=== PATIENT | female | born 1980 | race Caucasian/White ===

== ENCOUNTER 2017-02-06 14:57 | Emergency (ER) | payer OTHER ==
[2017-02-06 15:03] VITALS: BP 118/78; PULSE 71; TEMP 98.1; BMI 27.3
[2017-02-06] MEDS ORDERED: IBUPROFEN 600 MG TABLET (FP) PO ONE ×2 (16:16→16:17)
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
== END 2017-02-06 16:19 | disposition home or self-care (01) ==
LOC: JERFT 14:57
DX: S56.811A Strain of other muscles, fascia and tendons at forearm level, right arm, initial encounter (principal); Y35.811A Legal intervention involving manhandling, law enforcement official injured, initial encounter; Y93.89 Activity, other specified; Y92.89 Other specified places as the place of occurrence of the external cause; Y99.0 Civilian activity done for income or pay
CPT/HCPCS: 99281-25

== ENCOUNTER 2017-07-04 15:14 | Emergency (ER) | payer OTHER ==
[2017-07-04 15:39] VITALS: BP 117/62; PULSE 83; TEMP 98.2; BMI 27.1
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
[2017-07-04] MEDS ORDERED: DIPHTH,PERTUSS(ACELL),TET 0.5 ML DISP.SYRIN IM ONE (16:40)
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
== END 2017-07-04 16:51 | disposition home or self-care (01) ==
LOC: JERFT 15:14
PROC: 3E0234Z Introduction of Serum, Toxoid and Vaccine into Muscle, Percutaneous Approach (ICD-10-PCS; principal; 2017-07-04)
DX: Z77.21 Contact with and (suspected) exposure to potentially hazardous body fluids (principal); Y35.891A Legal intervention involving other specified means, law enforcement official injured, initial encounter; Y93.89 Activity, other specified; Y92.89 Other specified places as the place of occurrence of the external cause; Y99.0 Civilian activity done for income or pay
CPT/HCPCS: 90715; 99281-25

== ENCOUNTER 2018-11-07 08:58 | Emergency (ER) | payer OTHER ==
[2018-11-07 09:04] VITALS: BP 137/82; PULSE 60; TEMP 97.9; BMI 28.3
[2018-11-07] MEDS ORDERED: IBUPROFEN 600 MG TABLET (FP) PO ONE ×2 (09:46→09:57)
--- NOTE | 2018-11-07 09:48 | PDOC ---
History of Present Illness - General Chief Complaint: Pain Stated Complaint: RT. HAND PAIN Time Seen by Provider: 11/07/18 09:37 History Source: Patient Exam Limitations: No Limitations - History of Present Illness Initial Comments: 11/07/18 09:43 37 year old [employer] with no significant medical or surgical history presents with injury to right hand. Patient reports bracing on her right hand to get up and since then with pain in right 3rd digit. Denies numbness or tingling in distal finger. Occurred: reports: just prior to arrival Severity: reports: mild Upper Extremity Pain Location: right: 3rd finger Method of Injury: reports: other (braced on hand while standing up) Modifying Factors: improves with: None (no intervention so far) Extremity Pain Location - Extremity Pain Location Extremity Pain Locations: right: 3rd finger Past History - Travel Traveled outside of the country in the last 30 days: No Close contact w/someone who was outside of country & ill: No - Past Medical History Allergies/Adverse Reactions: Allergies Allergy/AdvReac Type Severity Reaction Status Date / Time No Known Allergies Allergy Verified 11/07/18 09:04 Home Medications: Ambulatory Orders NK [No Known Home Medication] 03/05/15 COPD: No - Immunization History Immunization Up to Date: Yes - Suicide/Smoking/Psychosocial Hx Smoking Status: No Smoking History: Never smoked Have you smoked in the past 12 months: Yes Number of Cigarettes Smoked Daily: 1 Information on smoking cessation initiated: No Hx Alcohol Use: No Drug/Substance Use Hx: No Substance Use Type: None Review of Systems - Review of Systems Able to Perform ROS?: Yes Is the patient limited [place]anian proficient: No Constitutional: No: Chills, Fever, Weakness HEENTM: No: Nose Congestion, Throat Swelling Respiratory: No: Shortness of Breath, Stridor Cardiac (ROS): No: Chest Pain, Lightheadedness ABD/GI: No: Nausea, Indigestion : No: Pain Musculoskeletal: No: Muscle Pain, Muscle Weakness Integumentary: No: Erythema Neurological: No: Numbness, Paresthesia, Weakness *Physical Exam - Vital Signs Last Vital Signs Temp Pulse Resp BP Pulse Ox 97.9 F 60 18 137/82 99 11/07/18 09:02 11/07/18 09:02 11/07/18 09:02 11/07/18 09:02 11/07/18 09:02 - Physical Exam General Appearance: Yes: Nourished, Appropriately Dressed HEENT: positive: TMs Normal, Pharynx Normal Neck: positive: Supple. negative: Lymphadenopathy (R), Lymphadenopathy (L) Respiratory/Chest: positive: Lungs Clear, Normal Breath Sounds Cardiovascular: positive: Regular Rhythm, Regular Rate Extremity: positive: Normal Capillary Refill, Other (small amount of swelling noted on palmar aspect of right hand, no bruising, able to do ROM of hand and fingers of both hands without pain or difficulty. No crepitus felt or heard) Neurologic: positive: Fully Oriented Medical Decision Making - Medical Decision Making 11/07/18 09:49 37 year old [employer] with no significant medical or surgical history presents with injury to right hand 3rd right digit injury -analgesia/anti-inflammatory given PO -xray of right hand and right fingers *DC/Admit/Observation/Transfer Diagnosis at time of Disposition: Finger injury Qualifiers: Encounter type: initial encounter Laterality: right Qualified Code(s): S69.91XA - Unspecified injury of right wrist, hand and finger(s), initial encounter - Discharge Dispostion Disposition: HOME Condition at time of disposition: Good Decision to Admit order: No - Referrals Referrals: Sauol Leslie MD [Staff Physician] - - Patient Instructions Printed Discharge Instructions: Finger Sprain Additional Instructions: Please wear alex wrap when up, remove for sleep, and showering Call orthopedic for worsening symptoms - Post Discharge Activity Forms/Work/School Notes: Back to Work
== END 2018-11-07 11:05 | disposition home or self-care (01) ==
LOC: JERFT 08:58
DX: S69.81XA Other specified injuries of right wrist, hand and finger(s), initial encounter (principal); X50.0XXA Overexertion from strenuous movement or load, initial encounter; X50.9XXA Other and unspecified overexertion or strenuous movements or postures, initial encounter; Y93.89 Activity, other specified; Y92.89 Other specified places as the place of occurrence of the external cause; Y99.0 Civilian activity done for income or pay
CPT/HCPCS: 73130-TC-RT-FY; 73140-TC-RT-FY; 99281-25

== ENCOUNTER 2020-08-07 00:19 | Emergency (ER) | payer SELFPAY ==
[2020-08-07 01:07] VITALS: BP 128/72; PULSE 90; TEMP 98.1; BMI 28.3
[2020-08-07 01:44] LABS: BASO % 0.2 % (0-2.0); HEMATOCRIT 32.2 % (32.4-45.2); HEMOGLOBIN 10.9 GM/dL (10.7-15.3); LYMPH % 17.5 % (8-40); MCH 29.5 pg (25.7-33.7); MCHC 33.9 g/dl (32.0-36.0); MEAN CELL VOLUME 86.9 fl (80-96); MONO % 9.4 % (3.8-10.2); NEUT % 71.9 % (42.8-82.8); PLATELET COUNT 413 K/MM3 (134-434); RBC 3.71 M/mm3 (3.60-5.2); RDW 13.1 % (11.6-15.6); WHITE BLOOD COUNT 13.6 K/mm3 (4.0-10.0)
[2020-08-07 01:53] LABS: INR 1.2 (0.83-1.09); PROTHROMBIN TIME (PATIENT) 14.4 SEC (9.7-13.0)
[2020-08-07 01:56] LABS: ACTIVATED PTT 33.7 SECONDS (25.2-36.5)
[2020-08-07 02:10] LABS: CHLORIDE 105 mmol/L (98-107); POTASSIUM 4.1 mmol/L (3.5-5.1); SODIUM 138 mmol/L (136-145)
[2020-08-07 02:12] LABS: CALCIUM 9.3 mg/dL (8.5-10.1)
[2020-08-07 02:13] LABS: ALBUMIN 3.4 g/dl (3.4-5.0); ANION GAP 10 MMOL/L (8-16); BLOOD UREA NITROGEN 11.9 mg/dL (7-18); CO2 24 mmol/L (21-32); GLUCOSE,RANDOM 97 mg/dL (74-106)
[2020-08-07 02:16] LABS: CREATININE 0.8 mg/dL (0.55-1.3); SGOT/AST 20 U/L (15-37); SGPT/ALT 43 U/L (13-61)
[2020-08-07 02:17] LABS: BILIRUBIN,TOTAL 0.6 mg/dL (0.2-1)
[2020-08-07 02:18] LABS: ALK PHOS 73 U/L (45-117)
[2020-08-07] MEDS ORDERED: SODIUM CHLORIDE 0.9% 500 ML INFUS.BAG IV ONE (02:37)
[2020-08-07 02:45] LABS: LIPASE 79 U/L (73-393)
== END 2020-08-07 06:11 | disposition left against medical advice (07) ==
LOC: JER 00:19
DX: R79.1 Abnormal coagulation profile (principal); R53.1 Weakness
CPT/HCPCS: 36415; 70450-TC; 71275-TC; 72125-TC; 80053; 82550; 83690; 84443; 84484; 84703; 85025; 85379; 85610; 85730; 93005; 93010; 99285-25

== ENCOUNTER 2022-01-18 14:15 | Emergency (ER) | payer OTHER ==
[2022-01-18 14:31] VITALS: BP 129/81; PULSE 61; RESP 18; TEMP 98.1; BMI 29.2
== END 2022-01-18 15:55 | disposition home or self-care (01) ==
LOC: FER 14:15
DX: S69.92XA Unspecified injury of left wrist, hand and finger(s), initial encounter (principal); Y04.8XXA Assault by other bodily force, initial encounter
CPT/HCPCS: 73090-TC-LT-FY; 73110-TC-LT-FY; 99283-25

== ENCOUNTER 2022-04-18 10:30 | Emergency (ER) | payer OTHER ==
[2022-04-18 10:42] VITALS: BP 119/80; PULSE 81; RESP 18; TEMP 98.3; BMI 29.2
[2022-04-18] MEDS ORDERED: IBUPROFEN 400 MG TABLET (FP) PO ONE ×2 (10:51→10:52)
== END 2022-04-18 11:01 | disposition home or self-care (01) ==
LOC: FER 10:30
DX: S39.012A Strain of muscle, fascia and tendon of lower back, initial encounter (principal); V89.2XXA Person injured in unspecified motor-vehicle accident, traffic, initial encounter; Y92.9 Unspecified place or not applicable
CPT/HCPCS: 99283-25